=== PATIENT | female | born 1990 | race Caucasian/White ===

== ENCOUNTER 2020-03-24 15:44 | Outpatient (REF) | payer MEDICAID, SELFPAY | END 2020-03-24 15:45 | disposition home or self-care (01) | LOC: HO.LAB 15:44 | PROVIDERS: Visit Provider Internal Medicine | DX: Z20.822 Contact with and (suspected) exposure to COVID-19 (principal) | CPT/HCPCS: 36415; C9803; U0003; U0005 ==

== ENCOUNTER 2020-03-24 16:15 | Emergency (ER) | payer MEDICAID, SELFPAY ==
--- NOTE | ~2020-03-24 | XR_ITS ---
EXAMINATION: XR CHEST CLINICAL INFORMATION: Cough COMPARISON: Chest x-ray 10/26/2006 TECHNIQUE: Frontal view of the chest was obtained. Portable 10:05 PM FINDINGS: No significant abnormality is noted involving the heart, lungs, mediastinum, bony thorax or soft tissues. XR/XR chest 1V IMPRESSION: Unremarkable examination.
[2020-03-24 17:13] VITALS: BP 149/105; PULSE 93; RESP 18; TEMP 36.8; O2SAT 97; BMI 42.9
[2020-03-24 21:02] VITALS: BP 132/81; PULSE 91; RESP 18; TEMP 36.9; O2SAT 97
--- NOTE | 2020-03-24 21:11 | ED.ASTHMA ---
HPI - Asthma General Chief Complaint: Asthma Stated Complaint: Asthma Time Seen by Provider: 03/24/20 21:11 Source: patient Mode of arrival: ambulatory History of Present Illness HPI Narrative: This is a 29-year-old female with history asthma and presents with 2-3 days of increasing shortness of breath and states that she ran out of her home medications. However, patient also endorses some sore throat, high fevers, cough but denies any recent travel. No recent history of long car rides or plane trips, hemoptysis, estrogen supplementation, personal history of cancer, recent surgery or bed bound state, calf pain or calf swelling. LMP-currently menstruating. Patient was tested for COVID-19 earlier today and results are pending. Related Data Previous Rx's Medication Instructions Recorded prednisone 40 mg PO DAILY 4 Days #8 tab 03/24/20 Allergies Allergy/AdvReac Type Severity Reaction Status Date / Time No Known Allergies Allergy Unverified 10/25/19 16:58 Review of Systems Review of Systems: Pertinent positives and negatives as stated in HPI 10 point review systems is otherwise negative. PMFSH Past Medical History Source: nursing notes reviewed Medical History Asthma Social History Social History Advance Directives: No Advance Directives Information Provided: Yes Physical Exam Vital Signs: Vital Signs: Last Vital Signs Temp 98.5 F 03/24/20 21:02 Pulse 91 03/24/20 21:02 Resp 18 03/24/20 21:02 BP 132/81 03/24/20 21:02 Pulse Ox 97 03/24/20 21:02 Body Mass Index 42.9 VITAL SIGNS: Reviewed. GENERAL: Well developed, well nourished, in no acute distress. HEAD: Normocephalic/atraumatic EYES: PERRLA, EOMI EARS: Ext canals without abnormality, TMs non-bulging and non-erythematous NOSE: Nares patent bilateral OROPHARYNX: no oral lesions noted, posterior pharynx with noted tonsillar enlargement/erythema/exudates NECK: Supple, no adenopathy LUNGS: Normal breath sounds, no noted tachypnea, or increased work of breathing. SpO2<97> CARDIOVASCULAR: Regular rate and rhythm without noted murmurs ABDOMEN: Obese, Soft, non-tender, non-distended with bowel sounds. SKIN: Inspection of the skin reveals no rashes NEUROLOGIC: Alert and oriented x 4. Course Course Course Narrative: This is a 29-year-old female with history and clinical presentation consistent with mild asthma exacerbation, with features of possible strep pharyngitis as well as viral syndrome but suspect the former. Will rapid strep and chest x-ray and provide albuterol and p.o. prednisone. Patient will then be instructed to self quarantine as per stated messages as guidelines awaiting her COVID 19 test results. Review of all investigations negative for any acute findings. On re-evaluation patient reports subjective improvement of her symptoms after receiving Ventolin and prednisone. She will be discharged home in stable condition with a short course of steroids. MDM - Asthma Lab Data Labs: Lab Results 03/24/20 Range/Units 21:51 Urine Test NEGATIVE (NEGATIVE) Discharge Plan Discharge Clinical Impression: Acute viral syndrome Asthma Qualifiers: Asthma severity: mild Asthma persistence: unspecified Asthma complication type: with acute exacerbation Qualified Code(s): J45.901 - Unspecified asthma with (acute) exacerbation Patient Disposition: Home, Self-Care Instructions: Asthma (ED), Viral Syndrome (ED), COVID-19 (Coronavirus Disease 2019) (ED) Additional Instructions: 1. Use the Bentyl in inhaler, 2 puffs, every 4-6 hours, as needed for shortness of breath or wheezing. 2. You must remain self quarantined as per the [facility] guidelines until you have your COVID-19 test results. 3. You have been provided with a prescription and you should go to the pharmacy and then take the medication as prescribed. 4. Follow-up with a primary care provider in the next 2-3 days. Do not hesitate to return to the emergency department for any acute worsening of your symptoms. Prescriptions: New prednisone 20 mg tablet 40 mg PO DAILY 4 Days Qty: 8 RF: 0 Referrals: Physician,None [Primary Care Provider] - 2 days
[2020-03-24] MEDS: Albuterol Sulfate 90 MCG 8 GM INHALER 4 PUFF INHALE (21:32)
[2020-03-24] MEDS: predniSONE 10 MG TABLET 50 MG PO (21:32)
[2020-03-24 22:00] LABS: UPreg QC Valid YES; Urine Pregnancy NEGATIVE (NEGATIVE)
== END 2020-03-24 22:56 | disposition home or self-care (01) ==
PROVIDERS: Emergency Provider Student in an Organized Health Care Education/Training Program
DX: J45.901 Unspecified asthma with (acute) exacerbation (principal); B34.9 Viral infection, unspecified
CPT/HCPCS: 71045; 81025; 87071; 87880; 99283

== ENCOUNTER → 2020-04-10 13:08 | Outpatient (BNVA) | payer MEDICAID, SELFPAY | PROVIDERS: PCP Internal Medicine; Visit Provider Physician Assistant ==

== ENCOUNTER → 2020-04-16 07:33 | Outpatient (BNVA) | payer MEDICAID, SELFPAY | PROVIDERS: PCP Internal Medicine; Visit Provider Surgery ==

== ENCOUNTER 2020-05-01 08:27 | Outpatient (REF) | payer MEDICAID, SELFPAY ==
--- NOTE | ~2020-05-01 | US_ITS ---
EXAMINATION: ULTRASOUND ABDOMEN AND CHEST X-RAY. CLINICAL INFORMATION: Morbid obesity due to excessive calories. COMPARISON: None TECHNIQUE: Routine grayscale imaging of abdomen was performed. Chest x-ray 2 views FINDINGS: ULTRASOUND ABDOMEN: PANCREAS: The head and partially is body of the pancreas is homogeneous echotexture. The tail is not seen. ABDOMINAL AORTA AND IVC: The abdominal aorta is normal in its entire course and caliber. The IVC is normal. LIVER: The liver is homogeneous in echotexture without any focal lesion or intrahepatic ductal dilatation. The right lobe measures 17.3 cm in length and the left lobe measures 12.2 cm in length. There is normal hepatopedal flow seen in the portal vein on Doppler exam. On Elastography the median stiffness is 1.28 m/s. IQR/median is 0.13. GALLBLADDER: The gallbladder is distended without any echogenic stones or wall thickening. CBD: The CBD measures 0.4 cm. RIGHT KIDNEY: There is normal cortical thickness. No free focal lesion, echogenic stone or hydronephrosis seen. The right kidney measures 7.4 cm. LEFT KIDNEY: The left kidney measures 10.6 cm in length. There is normal cortical thickness. No congenic stones, cyst, solid mass or hydronephrosis seen. SPLEEN: The spleen measures 10.6 cm. CHEST X-RAY: Both lungs are fairly well-expanded and clear of acute process. The heart size and pulmonary vascularity is normal. There is mild dextroscoliosis of dorsal spine. US/US abdomen comp w elastography IMPRESSION: Unremarkable ultrasound exam. On Elastography median liver stiffness is 1.28 and/as suggestive of normal exam. There is hepatopedal flow seen in the portal vein on Doppler exam Unremarkable chest exam. Incidental finding of mild dextroscoliosis dorsal spine.
--- NOTE | ~2020-05-01 | FL_ITS ---
EXAMINATION: FL UPPER GI SERIES CLINICAL INFORMATION: Morbid obesity COMPARISON: None TECHNIQUE: Air contrast upper GI examination FINDINGS: There is normal apposition of the vocal cords while saying E. There is normal elevation of the soft palate while saying candy. Patient swallowed thin and thick barium without difficulty. There is no evidence of nasopharyngeal reflux or tracheal aspiration. The esophagus demonstrates normal distensibility without abnormal mass, stricture, or ulceration. There is minimal rapidly clearing gastroesophageal reflux within the distal esophagus which was seen once which could not be reproduced with water siphon test. Stomach displays normal distensibility without abnormal mass or ulceration. There was no delay in gastric emptying. The duodenal bulb and sweep appeared unremarkable. FLUOROSCOPY TIME: 1.8 minutes DOSE AREA PRODUCT: 20.663 Gy centimeter squared FL/FL upper GI series IMPRESSION: No significant abnormality identified on air-contrast upper GI examination.
[2020-05-01 10:54] LABS: MANUAL DIFF FLAG NO
[2020-05-01 11:02] LABS: Basophils Percent Auto 0.3 % (0-2); Eosinophils Absolute Auto 0.1 X10*3/uL (0.0-0.4); Eosinophils Percent Auto 1.8 % (0-4); Hematocrit 41.4 % (37-47); Hemoglobin 13.6 g/dl (12.0-16.0); Imm Gran Abs Auto 0.01 X10*3/uL (0.00-0.03); Imm Gran Pct Auto 0.2 % (0.0-0.4); Lymphocytes Absolute Auto 2.4 X10*3/uL (1.2-4.9); Lymphocytes Percent Auto 39.3 % (20-40); Mean Corpuscular HGB Conc 32.9 g/dl (31.0-35.0); Mean Corpuscular Hemoglobin 27.5 pg (27.0-33.0); Mean Corpuscular Volume 83.6 fL (80-98); Mean Platelet Volume 10.9 fL (9.4-12.3); Monocytes Absolute Auto 0.3 X10*3/uL (0.1-1.2); Monocytes Percent Auto 5.5 % (2-11); Neutrophils Absolute Auto 3.2 X10*3/uL (2.0-8.3); Neutrophils Percent Auto 52.9 % (45-73); Platelet Count 283 X10*3/uL (160-400); Red Blood Count 4.95 X10*6/uL (4.20-5.50); Red Cell Distribution Width 13.2 % (11.0-16.0)
[2020-05-01 11:20] LABS: Estimated Average Glucose 100 mg/dL; Hemoglobin A1c % 5.1 %
[2020-05-01 11:24] LABS: Alanine Aminotransferase 19 U/L (0-31); Anion Gap 11 (12-20); Aspartate Amino Transferase 17 U/L (5-31); Bilirubin Total 0.3 mg/dL (0.0-1.0); Blood Urea Nitrogen 10 mg/dL (9-16); C Reactive Protein 0.39 mg/dL (< or = 0.50); Calcium 9.1 mg/dL (8.4-10.2); Carbon Dioxide 29 mmol/L (22-29); Chloride 105 mmol/L (96-108); Estimated Glomerular Filt Rate > 60; Glucose Random 90 mg/dL (60-115); Potassium 4.1 mmol/L (3.3-5.1); Sodium 141 mmol/L (135-145); Total Protein 7.1 g/dL (6.5-8.0)
[2020-05-01 11:25] LABS: Albumin Level 4.2 g/dL (3.5-5.0); Alkaline Phosphatase 52 U/L (39-117); Cholesterol 206 mg/dL; HDL Cholesterol 48 mg/dL; LDL Cholesterol Calculated 128 mg/dl; Triglycerides 153 mg/dL
[2020-05-01 11:55] LABS: Ferritin 40 ng/mL (10-122); TSH reflex Free T4 1.03 uIU/mL (0.32-4.0); Vitamin D 25-OH Total 21.8 ng/mL (>30)
[2020-05-01 12:04] LABS: Folate 18.1 ng/mL (> or = 4.0); Vitamin B12 358 pg/mL (200-900)
[2020-05-02 04:57] LABS: Insulin Level Total 26.1 uIU/mL
[2020-05-02 17:21] LABS: Calcium (PTHI) 9.4 mg/dL (8.6-10.2); PTHI 56 pg/mL (14-64)
[2020-05-03 22:47] LABS: Zinc 63 mcg/dL (60-130)
[2020-05-05 11:21] LABS: Vitamin A 53 mcg/dL (38-98)
[2020-05-06 12:46] LABS: Vitamin B1 8 nmol/L (8-30)
== END 2020-05-01 08:28 | disposition home or self-care (01) ==
LOC: HO.US 08:27
PROVIDERS: PCP Internal Medicine; Visit Provider Surgery
DX: Z01.818 Encounter for other preprocedural examination (principal); E66.01 Morbid (severe) obesity due to excess calories; K21.9 Gastro-esophageal reflux disease without esophagitis; I10 Essential (primary) hypertension; J45.909 Unspecified asthma, uncomplicated
CPT/HCPCS: 36415; 71046; 74240; 76705; 76981; 80053; 80061; 82306; 82607; 82728; 82746; 83036; 83525; 83970; 84425; 84443; 84590; 84630; 85025; 86140

== ENCOUNTER → 2020-05-14 08:11 | Outpatient (BNVA) | payer MEDICAID, SELFPAY | PROVIDERS: PCP Internal Medicine; Visit Provider Surgery ==

== ENCOUNTER → 2020-05-21 15:15 | Outpatient (BNVA) | payer MEDICAID, SELFPAY | PROVIDERS: PCP Internal Medicine; Visit Provider Dietitian, Registered | DX: E66.01 Morbid (severe) obesity due to excess calories (principal) | CPT/HCPCS: 97802 ==

== ENCOUNTER → 2020-06-09 08:24 | Outpatient (BNVA) | payer MEDICAID, SELFPAY | PROVIDERS: PCP Internal Medicine; Visit Provider Surgery ==

== ENCOUNTER → 2020-06-11 08:18 | Outpatient (BNVA) | payer MEDICAID, SELFPAY | PROVIDERS: PCP Internal Medicine; Visit Provider Dietitian, Registered | DX: E66.01 Morbid (severe) obesity due to excess calories (principal); Z68.41 Body mass index [BMI] 40.0-44.9, adult | CPT/HCPCS: 97803 ==

== ENCOUNTER → 2020-07-04 08:30 | Outpatient (BNVA) | payer MEDICAID, SELFPAY | PROVIDERS: PCP Internal Medicine; Visit Provider Dietitian, Registered | DX: E66.01 Morbid (severe) obesity due to excess calories (principal); Z68.41 Body mass index [BMI] 40.0-44.9, adult | CPT/HCPCS: 97803 ==

== ENCOUNTER 2022-09-22 14:16 | Outpatient (REF) | payer MEDICAID, SELFPAY ==
[2022-09-22 16:15] LABS: Estimated Average Glucose 97 mg/dL
[2022-09-22 16:43] LABS: Cholesterol 197 mg/dL; HDL Cholesterol 37 mg/dL; LDL Cholesterol Calculated 131 mg/dl; Triglycerides 148 mg/dL
[2022-09-22 16:51] LABS: Alanine Aminotransferase 12 U/L (0-31); Albumin Level 4.2 g/dL (3.5-5.0); Alkaline Phosphatase 59 U/L (39-117); Anion Gap 11 (12-20); Aspartate Amino Transferase 15 U/L (5-31); Bilirubin Direct 0.1 mg/dL (0.0-0.5); Bilirubin Total 0.4 mg/dL (0.0-1.0); Blood Urea Nitrogen 8 mg/dL (9-16); Carbon Dioxide 26 mmol/L (22-29); Chloride 106 mmol/L (96-108); Estimated Glomerular Filt Rate > 60; Glucose Random 83 mg/dL (60-115); Potassium 3.5 mmol/L (3.3-5.1); Sodium 139 mmol/L (135-145); Total Protein 7.5 g/dL (6.5-8.0)
[2022-09-22 17:02] LABS: TSH reflex Free T4 1.19 uIU/mL (0.32-4.0); Vitamin D 25-OH Total 21.4 ng/mL (>30)
[2022-09-22 17:09] LABS: Reflex LDLD? No
[2022-09-23 05:06] LABS: HIV AB/AG Nonreactive (Nonreactive); HIV Num 1 0.06 S/CO (0.00-0.99)
[2022-09-23 06:58] LABS: DHEA Sulfate 175 mcg/dL (19-237); Follicle Stimulating Hormone 6.2 mIU/mL; Lutenizing Hormone 3.5 mIU/mL
[2022-09-23 09:14] LABS: Rubella IgG Antibody 5.03 Index
[2022-09-24 04:14] LABS: Syphilis Screen Nonreactive (Nonreactive)
[2022-09-24 12:23] LABS: TS Negative Control Passed; TS Panel A 0; TS Panel B 0; TS Positive Control Passed; TSpotTB Negative (Negative)
[2022-09-27 16:23] LABS: Testosterone, Total 30 ng/dL (2-45)
== END 2022-09-22 14:17 | disposition home or self-care (01) ==
LOC: HO.HHCL 14:16
PROVIDERS: Visit Provider Internal Medicine
DX: Z00.00 Encounter for general adult medical examination without abnormal findings (principal); R03.0 Elevated blood-pressure reading, without diagnosis of hypertension; F32.A Depression, unspecified; E66.01 Morbid (severe) obesity due to excess calories; N93.8 Other specified abnormal uterine and vaginal bleeding
CPT/HCPCS: 36415; 80053; 80061; 82248; 82306; 82627; 83001; 83002; 83036; 84402; 84403; 84443; 86481; 86735; 86762; 86765; 86780; 87389

== ENCOUNTER 2024-10-29 14:47 | Outpatient (REF) | payer MEDICAID, SELFPAY ==
[2024-10-29 16:15] LABS: MANUAL DIFF FLAG NO
[2024-10-29 16:41] LABS: Alanine Aminotransferase 17 U/L (0-31); Albumin Level 4.2 g/dL (3.5-5.0); Alkaline Phosphatase 62 U/L (39-117); Anion Gap 10 (12-20); Aspartate Amino Transferase 52 U/L (5-31); Blood Urea Nitrogen 9 mg/dL (9-16); Calcium 9.0 mg/dL (8.4-10.2); Carbon Dioxide 28 mmol/L (22-29); Chloride 107 mmol/L (96-108); Cholesterol 201 mg/dL (<200); Estimated Glomerular Filt Rate > 60; HDL Cholesterol 39 mg/dL (>40); Potassium 3.7 mmol/L (3.3-5.1); Sodium 141 mmol/L (135-145); Total Protein 7.0 g/dL (6.5-8.0); Triglycerides 309 mg/dL (<150)
[2024-10-29 16:47] LABS: Hematocrit 40.1 % (37.0-47.0); Hemoglobin 13.5 g/dl (12.0-16.0); Imm Gran Abs Auto 0.01 X10*3/uL (0.00-0.03); Imm Gran Pct Auto 0.2 % (0.0-0.4); Lymphocytes Absolute Auto 2.4 X10*3/uL (1.2-4.9); Mean Corpuscular HGB Conc 33.7 g/dl (31.0-35.0); Mean Corpuscular Hemoglobin 28.2 pg (27.0-33.0); Mean Corpuscular Volume 83.7 fL (80.0-98.0); NRBC Abs Auto 0.000 X10*3/uL (0.0-0.012); NRBC Pct Auto 0.0 /100WBC (0.0-0.2); Platelet Count 266 X10*3/uL (160-400); Red Blood Count 4.79 X10*6/uL (4.20-5.50); White Blood Count 5.5 X10*3/uL (4.8-10.8)
[2024-10-29 21:37] LABS: Reflex LDLD? No
[2024-10-30 13:08] LABS: Syphilis Screen Nonreactive (Nonreactive)
[2024-10-30 13:20] LABS: HBS Num1 22.33 mIU/mL (0-7.99); HBc Num1 0.05 S/CO (0.00-0.79); HBsAGNum1 0.44 S/CO (0.00-0.99); HIV Num 1 0.05 S/CO (0.00-0.99); Hepatitis A Antibody IgM 0.18 Index (0-0.79); Hepatitis B Surface Antigen Negative (Negative); ~HepC Num1 0.09 S/CO (0.00-0.79); ~Hepatitis A Antibody IgM Nonreactive (Nonreactive); ~Hepatitis B Surface Antibody REACTIVE (Nonreactive); ~Hepatitis C Antibody Nonreactive (Nonreactive)
== END 2024-10-29 14:48 | disposition home or self-care (01) ==
LOC: HO.HHCL 14:47
PROVIDERS: PCP Internal Medicine; Visit Provider Internal Medicine
DX: Z11.59 Encounter for screening for other viral diseases (principal); Z11.4 Encounter for screening for human immunodeficiency virus [HIV]; A60.00 Herpesviral infection of urogenital system, unspecified; I10 Essential (primary) hypertension; N93.8 Other specified abnormal uterine and vaginal bleeding
CPT/HCPCS: 36415; 80053; 80061; 84443; 85025; 86704; 86706; 86709; 86780; 86803; 87340; 87389

== ENCOUNTER 2025-01-29 17:33 | Outpatient (REF) | payer MEDICAID, SELFPAY ==
--- OUTSIDE RECORDS SUMMARY | 2025-01-29 13:30 | XMS_ITS | Encounter Summary ---
Demographics Address [address] [place] [address] Mobile Phone Home Phone Email Address Preferred Language en Marital Status Single Sabianism Affiliation Unknown Race Other Race Ethnic Group Unknown Author Organization [employer] Address [address] [place] [address] [address] [place] [address] Care Team Providers Care Dermatology Sales Representative Name Role Phone Zayra Duran MD Primary Care Provider + Encounter Details Date Type Department Care Team ([facility] st Contact Info) Description 01/29/2025 1:30 PM EST Office Visit [facility] MEDICINE [address] [place] [address] Giovanna Santizo, ANP [address] [place] [address] Sore throat (Primary Dx); Strep throat; Benign essential HTN Social History Tobacco Use Types Packs/Day Years Used Date Smoking Tobacco: Former Cigarettes Passive Smoke Exposure: Past Smokeless Tobacco: Never Tobacco Cessation:Counseling Given: Not Answered Alcohol Use Standard Drinks/Week Comments Never 0 (1 standard drink = 0.6 oz pur e alcohol) Alcohol Answer Date Recorded How often do you have a drink containing alcohol ? 0 12/28/2024 Average Number of Drinks Not on file 025 How often do you have six or more drinks on one occasion? 0 12/28/2024 Depression Answer Date Recorded Patient Health Questionnaire-9 Score 14 12/28/2024 Patient Health Questionnaire-9 Score 14 12/28/2024 Last PHQ-9: Questionnaire Data Not on file 1 02/28/2024 Housing Stability Answer Date Recorded What is your housing situation today? I have bianka barrios 07/18/[address] you li ve. Do you have problems with any of the following? None of the above 07/18/2024 Food Insecurity Answer Date Recorded Within the past 12 months, y ou worried that your food would run out before you got money to buy more: Never True 2024 Within the past 12 months,th e food you bought just didn't last and you didn't have enough money to get more: Sometimes True 07/18/2024 Transportation Answer Date Recorded In the past 12 months, has l ack of transportation kept you from medical appts, meetings, work or from getting things needed for daily living? No 07/18/2024 Utilities Answer Date Recorded In the past 12 months, has t he electric, gas, oil or water company threatened to shut off services in your home? Yes 07/18/2024 Depression Answer Date Recorded Patient Health Questionnaire-2 Score 4 12/28/2024 Internet Access Answer Date Recorded Internet Access Q1 I am not sure 07/18/2024 Internet Access Q2 Not on file 07/18/2024 Comments No Sex and Gender Information Value Date Recorded Sex Assigned at Female 12/07/2021 10:16 AM EDT Legal Sex Female 10:16 AM EDT Gender Identity Female 12/07/2021 10:16 AM EDT Sexual Orientation Straight 12/07/2021 10 :16 AM EDT documented as of this encounter Last Filed Vital Signs Vital Sign Reading Time Taken Comments Blood Pressure 140/100 01/29/2025 1:58 PM EST Pulse 90 01/29/2025 1:58 PM EST Temperature 36.4 C (97.5 F) 01/29/2025 1:58 PM EST Respiratory Rate 20 01/29/2025 1:58 PM EST Oxygen Saturation 98% 01/29/2025 1:58 PM EST Inhaled Oxygen Concentration - - Weight 121 kg (267 lb 5 oz) 01/29/2025 1:[address] Height 162.6 cm (5' 4 ) 01/29/2025 1:58 PM EST Body Mass Index 45.88 01/29/2025 1:58 PM EST documented in this encounter Progress Notes * COOPER Mcclure - 01/29/2025 1:30 PM EST Subjective Shastiry is 34yo here today for sore throat. No triage in chart. PMH incl hypertension, MDD Shastiry Khalil, 34 years Strep Throat Symptoms - Fever onset three days prior to visit - Severe throat pain with significant difficulty swallowing - Reports spitting out saliva due to inability to swallow - Voice changes noted - Low energy and malaise - Shaking episode last night - Drinking water is very difficult - Searched online for symptom management - Denies ability to swallow comfortably Partner is sick w/ similar symptoms Former smoker Objective Blood pressure (!) 140/100, pulse 90, temperature 97.5 ??F (36.4 ??C), temperature source Temporal,resp. rate 20, height 5' 4 (1.626 m), weight 267 lb 5 oz (121 kg), SpO2 98%. Physical Exam Constitutional: General: She is not in acute distress. Appearance: Normal appearance. She is obese. She is not ill-appearing. HENT: Head: Normocephalic and atraumatic. Mouth/Throat: Tonsils: Tonsillar exudate present. 3+ on the right. 3+ on the left. Eyes: General: No scleral icterus. Extraocular Movements: Extraocular movements intact. Pupils: Pupils are equal, round, and reactive to light. Cardiovascular: Rate and Rhythm: Normal rate and regular rhythm. Pulmonary: Effort: Pulmonary effort is normal. No accessory muscle usage or respiratory distress. Musculoskeletal: Cervical back: Tenderness present. No rigidity. Lymphadenopathy: Cervical: Cervical adenopathy present. Neurological: Mental Status: She is alert and oriented to person, place, and time. Psychiatric: Mood and Affect: Mood normal. Behavior: Behavior normal. - HEENT: Throat examination reveals marked erythema and edema. Assessment & Plan Positive rapid strep here. Recommend ED evaluation d/t reported inability to swallow saliva and voice changes. Needs urgent CT scan to rule out peritonsillar abscess. Expect called to [facility]. Sore throat, Strep throat: - Diagnosis of strep throat confirmed. - Prescribed penicillin, sent to pharmacy. If hospital evaluation indicates abscess and alternativeantibiotics are provided, take hospital-prescribed antibiotics and do not merchandise pickup/receiving associate penicillin prescription. Hypertension Questionable compliance w/ BP med Recommend low salt diet, home BP checks, RN visit 1 mo If remains above goal < 120/80 and pt is taking nifedipine as rx'd, recommend increase to 60mg Prescription - Penicillin prescription sent to [facility] for treatment of streptococcal pharyngitis; initiate if no airway-compromising abscess identified; if hospital- prescribed antibiotics differ, follow hospital regimen and do not fill this prescription. Appointments - Emergency evaluation at [facility] today for CT scan to rule out peritonsillar abscess, with nursing staff to call ahead This note was drafted using Ambient (AI) technology. The patient/patient's guardian has been informed and has consented to the use of this technology: Yes documented in this encounter Plan of Treatment Scheduled Orders Name Type Priority Associated Diagnoses Orde r Schedule Culture, Throat Microbiology Routine Sore throat Ordered: 01/29/2025 documented as of this encounter Procedures Procedure Name Priority Date/Time Associated Diagnosis Comments POC SUAREZ ID NOW STREP A Routine 01/29/2025 2:07 PM EST Sore throat POCT INFLUENZA B (ID NOW RAPID MOLECULAR) Routine 01/29/2025 2:06 PM EST Sore throat POCT INFLUENZA A (ID NOW RAPID MOLECULAR) Routine 01/29/2025 2:06 PM EST Sore throat POCT RAPID COVID ANTIGEN Routine 01/29/2025 2:06 PM EST Sore throat documented in this encounter Results * (ABNORMAL) POCT Rapid Strep A SUAREZ ID NOW (01/29/2025 2:07 PM EST) Pathologist [facility] Rapid Strep A Screen Positive( A) Negative, None Detected QC Media Lot # [id number] Lot# Expiration Date Swab 01/29/2025 2:07 PM EST us Giovanna GAMBOA POINT OF CARE TEST ENTER/EDIT OR DERABLES Final Result * POCT Rapid Influenza B SUAREZ ID NOW (01/29/2025 2:06 PM EST) Pathologist [facility] Influenza B Negative Negative, Indeterminate [facility] QC Media Lot # [id number] [facility] Lot# Expiration Date [facility] Swab 01/29/2025 2:06 PM EST us Giovanna Santizo ANP POINT OF CARE TEST ENTER/EDIT OR DERABLES Final Result Performing Organization Address [facility]/ZIP Co de Phone Number [facility] [address] [place] [address] [phone] * POCT Rapid Influenza A SUAREZ ID NOW (01/29/2025 2:06 PM EST) Influenza A Negative Negative, Indeterminate [facility] QC Media Lot # [id number] [facility] Lot# Expiration Date 2,027 [facility] Swab 01/29/2025 2:06 PM EST us Giovanna Santizo ANP POINT OF CARE TEST ENTER/EDIT OR DERABLES Final Result Performing Organization Address [facility] Co de Phone Number [facility] [address] [place] [address] [phone] * POCT Rapid Covid-19 BinaxNOW (01/29/2025 2:06 PM EST) Rapid COVID Ag Negative QC Media Lot # [id number] Lot# Expiration Date 8,026 Swab 01/29/2025 2:06 PM EST us Giovanna Santizo ANP POINT OF CARE TEST ENTER/EDIT OR DERABLES Final Result documented in this encounter Visit Diagnoses Diagnosis Sore throat- Primary Acute pharyngitis Strep throat Streptococcal sore throat Benign essential HTN documented in this encounter Additional Health Concerns Assessment Noted Time PHQ-9 Depression Total Score: 14 025 11:32 AM EST documented as of this encounter Care Teams Dermatology Sales Representative Relationship Specialty Start Date End Date Zayra Duran MD [address] [place] [phone] PCP - General Family Medicine 04/09/20 documented as of this encounter
--- OUTSIDE RECORDS SUMMARY | 2025-01-29 17:36 | XMS_ITS | Encounter Summary ---
Demographics Address [address] [place] [address] Mobile Phone Home Phone Email Address Preferred Language en Marital Status Single Denominational Affiliation Unknown Race Other Race Ethnic Group Unknown Author Organization [employer] Address [address] [place] [address] [address] [place] [address] Care Team Providers Care Calender Supervisor Name Role Phone Zayra Duran MD Primary Care Provider + Reason for Visit * Reason Onset Date Comments ED expect 01/29/2025 Encounter Details Date Type Department Care Team ([facility] Contact Info) Description 01/29/2025 Telephone [facility] MEDICINE [address] [place], [place] [phone] Giovanna Santizo, ANP [address] [place] [address] ED expect Social History Tobacco Use Types Packs/Day Years Used Date Smoking Tobacco: Former Cigarettes Passive Smoke Exposure: Past Smokeless Tobacco: Never Alcohol Use Standard Drinks/Week Comments Never 0 [...] AM EDT documented as of this encounter Miscellaneous Notes * Telephone Encounter - Sweetie Holden RN - 01/29/2025 2:24 PM EST Called [facility] ED to give expect for pt per Giovanna Santizo NP. Pt to come by private car. Spoke with Ana,charge nurse: 3 days of sore throat, positive for strep, cannot swallow, fever/chills, r/o tonsillar abscess. Ana verbalized understanding. documented in this encounter Plan of Treatment Not on file documented as of this encounter Visit Diagnoses Not on filedocumented in this encounter Additional Health Concerns Assessment Noted Time PHQ-9 Depression Total Score: 14 025 11:32 AM EST documented as of this encounter Care Teams Calender Supervisor Relationship Specialty Start Date End Date Zayra Duran MD [address] [place] [phone] PCP - General Family Medicine 04/09/20 documented as of this encounter
--- OUTSIDE RECORDS SUMMARY | 2025-01-29 17:36 | XMS_ITS | Clinical Summary ---
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 ANTIGEN Routine 01/29/2025 2:06 PM EST Sore throat HEPATITIS PANEL, GENERAL Routine 10/29/2024 2:51 PM EDT Recurrent genital herpes simplex HIV 1/2 ANTIGEN/ANTIBODY, FOURTH GENERATION W/RFL Routine 10/29/2024 2:51 PM EDT Recurrent genital herpes simplex LIPID PANEL WITH REFLEX TO DIRECT LDL Routine 10/29/2024 2:51 PM EDT Benign essential HTN HPV MRNA E6/E7 Routine 04/10/2021 9:56 AM EST THINPREP IMAGING SYSTEM PAP Routine 04/10/2021 9:56 AM EST from Last 3 Months or Most Recently Relevant to Health Maintenance Results * (ABNORMAL) POCT Rapid Strep A SUAREZ ID NOW (01/29/2025 2:07 PM EST) Rapid Strep A Screen Positive( A) Negative, None Detected QC Media Lot # [id number] Lot# Expiration Date Swab 01/29/2025 2:07 PM EST us Giovanna GAMBOA POINT OF CARE TEST ENTER/EDIT OR DERABLES Final Result * POCT Rapid Influenza B SUAREZ ID NOW (01/29/2025 2:06 PM EST) Influenza B Negative Negative, Indeterminate [facility] QC Media Lot # [id number] [facility] Lot# Expiration Date [facility] Swab 01/29/2025 2:06 PM EST us Giovanna GAMBOA POINT OF CARE TEST ENTER/EDIT OR DERABLES Final Result [facility] [address] [place] [phone] * POCT Rapid Influenza A SUAREZ ID NOW (01/29/2025 2:06 PM EST) Pathologist [facility] Influenza A Negative Negative, Indeterminate [facility] QC Media Lot # [id number] [facility] Lot# Expiration Date ,027 [facility] Swab 01/29/2025 2:06 PM EST Giovanna Santizo ANP POINT OF CARE TEST ENTER/EDIT OR DERABLES Final Result [facility] [address] [place] [phone] [phone] * POCT Rapid Covid-19 BinaxNOW (01/29/2025 2:06 PM EST) [facility] Rapid COVID Ag Negative QC Media Lot # [id number] Lot# Expiration Date ,026 Swab 01/29/2025 2:06 PM EST Giovanna Santizo ANP POINT OF CARE TEST ENTER/EDIT OR DERABLES Final Result * (ABNORMAL) Lipid Panel with Reflex to Direct LDL (10/29/2024 2:51 PM EDT) Pathologist [facility] Triglycerides 309(H) <150 mg/dL [facility] Comment:Desirable Triglyceri de: less than 150 mg/dLBorderline High Triglyceride 150-199 mg/dLHigh Triglyceride: 200-499 mg/dLVery High Triglyceride: greater than or equal to 5OO mg/dL Cholesterol 201(H) <200 mg/dL [facility] Comment:Desirable Cholestero l: less than 200 mg/dLBorderline High Cholesterol: 200-239 mg/dLHigh Cholesterol: greater than 239 mg/dL LDL Cholesterol Calculated 101(H) <100 mg/dL [facility] Comment:Desirable LDL: less than 100 mg/dLNear Optimal/Above Optimal LDL: 110- 129 mg/dLBorderline High LDL: 130-159 mg/dLHigh LDL: 160-189 mg/dLVery High LDL: greater than or equal to 190 mg/dL HDL Cholesterol 39(L) >40 mg/dL [facility] Comment:Desirable HDL: great er than 40 mg/dL Note: This HDL assay may give artificially low results in patients with liver disease. Blood 10/29/2024 2:51 PM EDT 10/29/2024 4:09 PM EDT us Zayra Duran MD LAB BLOOD ORDERABLES Fin al Result Performing Organization Address City/[facility]/ZIP Co de Phone Number [facility] [address] [place] [phone] * Hepatitis Panel, General (10/29/2024 2:51 PM EDT) Hepatitis A IgM Nonreactive Nonreactive [facility] Comment:IgM antibodies to NOLAN V not detected; does not exclude earlyacute or recovered HAV infection. ~Hepatitis B Surface Antibody REACTIVE Nonreactive [facility] Comment:REACTIVE: > 11.99 mI U/mL Hepatitis B Core Antibody Nonreactive Nonreactive [facility] Hepatitis C Antibody Nonreactive Nonreactive [facility] Comment:Antibodies to HCV no t detected; does not exclude early acuteHCV infection. Hepatitis B Surface Ag Negative Negative [facility] Blood 10/29/2024 2:51 PM EDT 10/29/2024 4:09 PM EDT us Zayra Duran MD LAB BLOOD ORDERABLES Fin al Result Performing Organization Address City/[facility]/ZIP Co de Phone Number [facility] [address] [place] [phone] * HIV-1/2 Antigen and Antibodies, Fourth Generation, with Reflexes (10/29/2024 2:51 PM EDT) HIV AB/AG Nonreactive Nonreactive [facility] Comment:HIV-1 p24 Ag and/or HIV-1/HIV-2 Ab not detected.A test result that is nonreactive does not exclude thepossibility of exposure to or infection with HIV-1 and/orHIV-2. Nonreactive results in this assay for individualswith prior exposure to HIV-1 and/or HIV-2 may be due toantigen and antibody levels that are below the limit ofdetection of this assay.The [employer] HIV Ag/Ab Combo assay result andsupplemental assay results should be interpreted inconjunction with the patient's clinical presentation,history and other laboratory results. If the results areinconsistent with clinical evidence, additional testing issuggested to confirm the result. Blood Venous blood specimen / Unknown 10/29/2024 2:51 PM EDT 10/29/2024 4:09 PM EDT us Zayra Duran MD LAB BLOOD ORDERABLES Fin al Result [facility] [address] [place] [phone] * THINPREP TIS PAP (04/10/2021 9:56 AM EST) Clinical Information: None given [facility] COMMENT SEE COMMENT [facility] Comment: EXPLANATORY NOTE: The Pap is a screening test for cervical cancer. It is not a diagnostic test and is subject to false negative and false positive results. It is most reliable when a satisfactory sample, regularly obtained, is submitted with relevant clinical findings and history, and when the Pap result is evaluated along with historic and current clinical information. Comment: This Pap test has been evaluated with computer assisted technology. [facility] Employee Communications Intern : SEE COMMENT [facility] Comment: [place]AND[place], CT(ASCP) CT screening location: [place] [address] Interpretation/R esult: Negative for intraepithelial lesion or malignancy. [facility] LMP: NONE [facility] Prev. BX: NONE [facility] Prev. PAP: NONE [facility] SOURCE: None given [facility] Statement Of Adequacy: SEE COMMENT [facility] Comment: Satisfactory for evaluation. Endocervical/transformation zone component absent. 04/10/2021 9:56 AM EST Zayra Duran MD LAB PATHOLOGY ORDERABLES Final Result Performing Organization Address [facility] Co de Phone Number [facility] [address] * HPV mRNA E6/E7 (04/10/2021 9:56 AM EST) HPV nRNA E6/E7 Not Detected Not Detected [facility] Comment: Methodology: Backfiller-Mediated Amplification This assay detects E6/E7 viral messenger RNA (mRNA) from 14 high-risk HPV types (16,18,31,33,35,39,45,51,52,56,58,59,66,68). The analytical performance characteristics of this assay have been determined by [employer]. The modifications have not been cleared or approved by the FDA. This assay has been validated pursuant to the CLIA regulations and is used for clinical purposes. For additional information, please refer to http://education.[employer]/faq/WRW584p8 (This link if provided for information/ educational purposes only.) 04/10/2021 9:56 AM EST Zayra Duran MD LAB BLOOD ORDERABLES Fin al Result Performing Organization Address [facility] Co de Phone Number [facility] [address] from Last 3 Months or Most Recently Relevant to Health Maintenance Insurance * Guarantor: Lei Khalil Account Type Relation to Patient Date of Phone Billing Address Personal/Family Self 1990 [address] [place] [address] [facility] C[facility] * Guarantor: Lei Khalil Account Type Relation to Patient Date of Phone Billing Address Personal/Family Self [address] [place], [place] * Guarantor: Lei Khalil Account Type Relation to Patient Date of Phone Billing Address Personal/Family Self [address] [place], [place] Care Teams Button Puncher Relationship Specialty Start Date End Date Zayra Duran MD [address] [place] [phone] PCP - General Family Medicine 04/09/20
--- OUTSIDE RECORDS SUMMARY | 2025-01-29 17:36 | XMS_ITS | Encounter Summary ---
Demographics Address [address] [place] [address] Mobile Phone Home Phone Email Address Preferred Language en Marital Status Single Confucianism Affiliation Unknown Race Other Race Ethnic Group Unknown Author Organization [employer] Address [address] [facility] 7 [place] [address] Care Team Providers Care Director Of Finance Name Role Phone Zayra Duran MD Primary Care Provider + Reason for Visit * Reason Comments Med Refill Encounter Details Date Type Department Care Team ([facility] st Contact Info) Description 11/28/2023 Refill [facility] [address] [place], [place] [phone] Zayra Duran MD [address] [place], [place] [phone] DUB (dysfunctional uterine bleeding) Social History Tobacco Use Types Packs/Day Years Used Date Smoking Tobacco: Some Days Cigarettes Smokeless Tobacco: Never Alcohol Use Standard Drinks/Week Comments Never 0 (1 standard drink = 0.6 oz pur e alcohol) Depression Answer Date Recorded Patient Health Questionnaire-9 Score 21 09/16/2022 Housing Stability Answer Date Recorded What is your housing situation today? I have bianka barrios 12/03/[address] you li ve. Do you have problems with any of the following? None of the above 12/03/2022 Food Insecurity Answer Date Recorded Within the past 12 months, y ou worried that your food would run out before you got money to buy more: Never True 12/03/2022 Within the past 12 months,th e food you bought just didn't last and you didn't have enough money to get more: Never True Transportation Answer Date Recorded In the past 12 months, has l ack of transportation kept you from medical appts, meetings, work or from getting things needed for daily living? No 12/03/2022 Utilities Answer Date Recorded In the past 12 months, has t he electric, gas, oil or water company threatened to shut off services in your home? Yes 11/15/2022 Depression Answer Date Recorded Patient Health Questionnaire-2 Score 6 09/16/2022 Comments Unknown Sex and Gender Information Value Date Recorded Sex Assigned at Female 12/07/2021 10:16 AM EDT Legal Sex Female 10:16 AM EDT Gender Identity Female 12/07/2021 10:16 AM EDT Sexual Orientation Straight 12/07/2021 10 :16 AM EDT documented as of this encounter Plan of Treatment Not on file documented as of this encounter Visit Diagnoses Diagnosis DUB (dysfunctional uterine bleeding) Other disorder of menstruation and other abnormal bleeding from female genital tract documented in this encounter Additional Health Concerns Assessment Noted Time PHQ-9 Depression Total Score: 21 023 11:27 AM EDT documented as of this encounter Care Teams Director Of Finance Relationship Specialty Start Date End Date Zayra Duran MD [address] [place] [phone] PCP - General Family Medicine 04/09/20 documented as of this encounter
--- OUTSIDE RECORDS SUMMARY | 2025-01-29 17:36 | XMS_ITS | Encounter Summary ---
Demographics Address [address] [place] [address] Mobile Phone Home Phone Email Address Preferred Language en Marital Status Single Advent Affiliation Unknown Race Other Race Ethnic Group Unknown Author Organization [employer] Address [address] [facility] 7[address] [place] [address] Care Team Providers Care Flying Instructor Name Role Phone Zayra Duran MD Primary Care Provider + Encounter Details Date Type Department Care Team (Latest Contact Info) Description 01/29/2025 Travel Social History Tobacco Use Types Packs/Day Years [...] documented as of this encounter Care Teams Flying Instructor Relationship Specialty Start Date End Date Zayra Duran MD [address] [place] [phone] PCP - General Family Medicine 04/09/20 documented as of this encounter
--- OUTSIDE RECORDS SUMMARY | 2025-01-29 17:36 | XMS_ITS | Encounter Summary ---
Demographics Address [address] [place] [address] Mobile Phone Home Phone Email Address Preferred Language en Marital Status Single Scientology Affiliation Unknown Race Other Race Ethnic Group Unknown Author Organization [employer] Address [address] [place] [address] [address] [place] [address] Care Team Providers Care Compliance Representative Name Role Phone Zayra Duran MD Primary Care Provider + Reason for Visit * Reason Onset Date Comments Insurance 01/29/2025 Encounter Details Date Type Department Care Team ([facility] Contact Info) Description 01/29/2025 Telephone [facility] [address] [place], [place] [phone] Zayra Duran MD [address] [place], [place] [phone] Insurance Social History Tobacco Use Types Packs/Day Years [...] encounter Miscellaneous Notes * Telephone Encounter - Jacki Chu - 01/29/2025 1:45 PM EST Patient in for appointment was asked for balance due payment. Patient states was not aware of balance casualty underwriter called billing depart. and was told [facility] could not id pt for billing visit date backin July and patient is responsible for bill. Patient aware and asked to be billed. documented in this encounter Plan of Treatment Not on file documented as of this encounter Visit Diagnoses Not on filedocumented in this encounter Additional Health Concerns Assessment Noted Time PHQ-9 Depression Total Score: 14 025 11:32 AM EST documented as of this encounter Care Teams Compliance Representative Relationship Specialty Start Date End Date Zayra Duran MD [address] [place] [address] PCP - General Family Medicine 04/09/20 documented as of this encounter
== END 2025-01-29 17:34 | disposition home or self-care (01) ==
LOC: HO.HHCLNP 17:33
PROVIDERS: Visit Provider Nurse Practitioner Primary Care
DX: J02.9 Acute pharyngitis, unspecified (principal)
CPT/HCPCS: 87070; 87147